=== PATIENT | female | born 1950 | race Caucasian/White ===

== ENCOUNTER 2021-11-17 11:07 | Outpatient (CLI) | payer MEDICARE | END 2021-11-17 11:08 | disposition home or self-care (01) | LOC: BICMAMMO 11:07 | PROVIDERS: ATTEND Internal Medicine | DX: Z12.31 Encounter for screening mammogram for malignant neoplasm of breast (principal); Z80.3 Family history of malignant neoplasm of breast | CPT/HCPCS: 77063; 77067 ==

== ENCOUNTER 2022-06-20 13:34 | Outpatient (CLI) | payer MEDICARE | END 2022-06-20 13:35 | disposition home or self-care (01) | LOC: TBSIIMAG 13:34 | PROVIDERS: ATTEND Nurse Practitioner Family | DX: M47.22 Other spondylosis with radiculopathy, cervical region (principal); M48.02 Spinal stenosis, cervical region; M50.10 Cervical disc disorder with radiculopathy, unspecified cervical region; M53.82 Other specified dorsopathies, cervical region | CPT/HCPCS: 72141 ==

== ENCOUNTER 2022-09-07 11:45 | Inpatient (IN) | payer MEDICARE ==
[2022-09-07 13:12] LABS: Hemoglobin 12.1 g/dL (12.0-15.5); Mean Corpuscular HGB CONC 33.9 g/dL (32.0-36.0); Mean Corpuscular Hemoglobin 30.4 pg (27.0-33.0); Mean Corpuscular Volume 89.7 fl (81.6-98.3); Mean Platelet Volume 9.7 fl (7.4-10.4); Platelet Count 281 10x3/uL (150-450); RBC Distribution Width 13.2 % (11.5-14.5); Red Blood Cell (RBC) Count 3.98 10x6/uL (3.90-5.03); White Blood Cell (WBC) Count 6.8 10x3/uL (3.5-10.5)
[2022-09-07 13:26] LABS: Anion Gap 12 mmol/L (10-20); BUN (Urea Nitrogen) 17 mg/dL (9.8-20.1); Calc. Creatinine Clearance 0 mL/min (70-130); Carbon Dioxide 26 mmol/L (23-31); Chloride 101 mmol/L (98-107); Estimated GFR 60; Glucose 89 mg/dL (83-110); Potassium 3.9 mmol/L (3.5-5.1); Sodium 135 mmol/L (136-145)
[2022-09-07 13:31] LABS: Prothrombin Time 10.5 sec (9.5-12.1)
[2022-09-12] MEDS ORDERED: fentaNYL PF 100 MCG/2 ML SYRINGE ONE (06:12)
[2022-09-12] MEDS ORDERED: HYDROmorphone 2 MG/ML VIAL ONE ×2 (06:12→12:58)
[2022-09-12] MEDS ORDERED: SUGAMMADEX SODIUM 200 MG/2 ML VIAL ONE (06:12)
[2022-09-12] MEDS ORDERED: Neomycin-Polymyxin 1 ML AMP ONE (06:17)
[2022-09-12] MEDS ORDERED: Thrombin 5000 UNITS/5 ML VIAL ONE (06:17)
[2022-09-12] MEDS ORDERED: Bacitracin Zinc Ointment 30 gm TUBE ONE (06:17)
[2022-09-12] MEDS ORDERED: Bupivacaine/Epinephrine 0.25% 30 ML VIAL ONE (06:17)
[2022-09-12] MEDS ORDERED: Lidocaine 1% MPF 2 ML VIAL ONE (06:38)
[2022-09-12] MEDS ORDERED: Sodium Chloride 0.9% 100 ML ONE (06:38)
[2022-09-12] MEDS ORDERED: CEFAZOLIN 2 GM VIAL ONE (06:38)
[2022-09-12] MEDS ORDERED: Vancomycin 1 GM VIAL ONE (06:39)
[2022-09-12 07:37] LABS: SARS-CoV-2 NAA Rapid Test Not Detected (NotDetected)
[2022-09-12] MEDS ORDERED: ePHEDrine 50 MG/ML VIAL ONE (07:50)
[2022-09-12] MEDS ORDERED: PROPOFOL 200 MG/20 ML VIAL ONE (07:50)
[2022-09-12] MEDS ORDERED: Dexamethasone 20 MG/5 ML VIAL ONE (07:50)
[2022-09-12] MEDS ORDERED: Ondansetron PF 4 MG/2 ML Vial ONE (07:50)
[2022-09-12] MEDS ORDERED: Ketorolac Tromethamine 30 MG/ML VIAL ONE (07:50)
[2022-09-12] MEDS ORDERED: Rocuronium Bromide 10 MG/ML (10ML VIAL) ONE (07:50)
[2022-09-12] MEDS ORDERED: Phenylephrine 10 MG/ML VIAL ONE (07:50)
[2022-09-12] MEDS ORDERED: Acetaminophen 325 MG TAB PO PRN (12:19)
[2022-09-12] MEDS ORDERED: Ondansetron PF 4 MG/2 ML Vial IVP PRN ×3 (12:19→14:00)
[2022-09-12] MEDS ORDERED: diphenhydrAMINE 25 MG CAP PO PRN ×2 (12:19→14:00)
[2022-09-12] MEDS ORDERED: Promethazine HCl 25 MG/ML VIAL IM PRN ×3 (12:22→14:00)
[2022-09-12] MEDS ORDERED: Promethazine HCl 25 MG/ML VIAL IVPB PRN (12:22)
[2022-09-12] MEDS ORDERED: HYDROmorphone 2 MG/ML VIAL SLOW IVP PRN (12:22)
[2022-09-12] MEDS ORDERED: Ondansetron HCl/PF 4 MG/2 ML Vial IVP PRN (12:22)
[2022-09-12] MEDS ORDERED: Meperidine HCl/PF 25 MG/ML VIAL SLOW IVP PRN (12:22)
[2022-09-12] MEDS ORDERED: hydrALAZINE 20 MG/ML VIAL SLOW IVP PRN (12:23)
[2022-09-12] MEDS ORDERED: Cepastat Lozenges 1 LOZ PO PRN (12:24)
[2022-09-12] MEDS ORDERED: FENTANYL 50 MCG/ML 1 ML VIAL ONE ×2 (12:29→12:40)
[2022-09-12] MEDS ORDERED: Zolpidem Tartrate 5 MG TAB PO PRN ×2 (13:55→14:00)
[2022-09-12] MEDS ORDERED: Naloxone HCl 0.4 mg/ml Vial IV PRN ×2 (13:55→14:00)
[2022-09-12] MEDS ORDERED: diphenhydrAMINE 50 MG/ML VIAL IM PRN ×2 (13:55→14:00)
[2022-09-12] MEDS ORDERED: diphenhydrAMINE 50 MG/ML VIAL IVP PRN ×2 (13:55→14:00)
[2022-09-12] MEDS ORDERED: Communication Order-Pharmacy FS SCH ×2 (14:00)
[2022-09-12] MEDS ORDERED: HYDROmorphone 10 mg/100 ml CADD IVPB PRN (14:00)
[2022-09-12] MEDS ORDERED: CEFAZOLIN 2 GM in Sodium Chloride 0.9% 100 ML IVPB SCH (15:00)
[2022-09-12] MEDS: Sodium Chloride 0.9% 1,000 ML IV SCH (19:20)
[2022-09-12 20:31] VITALS: BMI 41.5
[2022-09-12] MEDS: Atorvastatin Calcium 40 MG TAB PO SCH (20:48)
[2022-09-12] MEDS: Gabapentin 300 MG CAP PO SCH (20:48)
[2022-09-12] MEDS: Sertraline 100 MG TAB PO SCH (20:49)
[2022-09-13 05:17] LABS: #Lymphocytes 1.7 thou/uL (1.20-3.40); #Monocytes 0.7 thou/uL (0.11-0.59); #Neutrophils 4.8 thou/uL (1.40-6.50); %Basophils 0.2 % (0.0-1.0); %Eosinophils 0.2 % (0.0-10.0); %Lymphocytes 22.9 % (21.0-51.0); %Monocytes 10.2 % (0.0-10.0); %Neutrophils 66.5 % (42.0-75.0); Mean Corpuscular Hemoglobin 31.3 pg (27.0-31.0); Mean Corpuscular Volume 94.9 fl (78.0-98.0); Mean Platelet Volume 6.9 fL (7.4-10.4); Platelet Count 209 10x3/uL (130-400); RBC Distribution Width 12.2 % (11.5-14.5); Red Blood Cell (RBC) Count 3.51 mill/uL (4.20-5.40); White Blood Cell (WBC) Count 7.3 10x3/uL (4.8-10.8)
[2022-09-13 05:37] LABS: Anion Gap 12 mmol/L (10-20); BUN (Urea Nitrogen) 17 mg/dL (9.8-20.1); Calc. Creatinine Clearance 95 mL/min (70-130); Calcium 8.2 mg/dL (7.8-10.44); Carbon Dioxide 27 mmol/L (23-31); Chloride 100 mmol/L (98-107); Estimated GFR 73; Glucose 105 mg/dL (83-110); Potassium 4.4 mmol/L (3.5-5.1); Sodium 135 mmol/L (136-145)
[2022-09-13] MEDS: CEFAZOLIN 2 GM in Sodium Chloride 0.9% 100 ML IVPB SCH ×3 (06:13→20:50)
[2022-09-13] MEDS: Bisoprolol Fumarate 5 MG TAB PO SCH (08:13)
[2022-09-13] MEDS: Sodium Chloride 0.9% 1,000 ML IV SCH ×3 (08:13→15:23)
[2022-09-13] MEDS: Hydrochlorothiazide 25 MG TAB PO SCH (08:14)
[2022-09-13] MEDS ORDERED: tiZANidine HCl 4 MG TAB PO SCH (10:15)
[2022-09-13] MEDS: diphenhydrAMINE 25 MG CAP PO PRN ×2 (10:55→14:34)
[2022-09-13] MEDS ORDERED: HYDROcodone/Acetaminophen 10/325 mg Tablet PO PRN (11:25)
[2022-09-13] MEDS: HYDROcodone/Acetaminophen 10/325 mg Tablet PO PRN ×2 (14:34→20:40)
[2022-09-13] MEDS ORDERED: Promethazine HCl 12.5 MG in Sodium Chloride 0.9% 50 ML IVPB PRN (19:59)
[2022-09-13] MEDS: Sertraline 100 MG TAB PO SCH (20:30)
[2022-09-13] MEDS: Gabapentin 300 MG CAP PO SCH (20:30)
[2022-09-13] MEDS: Atorvastatin Calcium 40 MG TAB PO SCH (20:30)
[2022-09-13] MEDS: tiZANidine HCl 4 MG TAB PO PRN (23:08)
[2022-09-14] MEDS: HYDROcodone/Acetaminophen 10/325 mg Tablet PO PRN ×3 (02:58→17:08)
[2022-09-14] MEDS: CEFAZOLIN 2 GM in Sodium Chloride 0.9% 100 ML IVPB SCH ×3 (05:45→20:15)
[2022-09-14] MEDS: Hydrochlorothiazide 25 MG TAB PO SCH (07:50)
[2022-09-14] MEDS: tiZANidine HCl 4 MG TAB PO PRN (07:50)
[2022-09-14] MEDS: Bisoprolol Fumarate 5 MG TAB PO SCH (07:50)
[2022-09-14] MEDS: Sodium Chloride 0.9% 1,000 ML IV SCH ×2 (07:51→17:07)
[2022-09-14] MEDS ORDERED: Morphine 4 MG/ML VIAL SLOW IVP PRN (09:35)
[2022-09-14] MEDS: Chloraseptic Spray 180 ml Bottle PO PRN ×2 (11:59→20:21)
[2022-09-14] MEDS: Diazepam 5 MG TAB PO PRN ×2 (13:17→21:15)
[2022-09-14] MEDS: Sertraline 100 MG TAB PO SCH (20:15)
[2022-09-14] MEDS: Atorvastatin Calcium 40 MG TAB PO SCH (20:17)
[2022-09-14] MEDS: Gabapentin 300 MG CAP PO SCH (20:17)
[2022-09-15] MEDS: CEFAZOLIN 2 GM in Sodium Chloride 0.9% 100 ML IVPB SCH (05:32)
[2022-09-15] MEDS: HYDROcodone/Acetaminophen 10/325 mg Tablet PO PRN ×2 (05:46→14:37)
[2022-09-15] MEDS: Sodium Chloride 0.9% 1,000 ML IV SCH ×2 (07:31→23:27)
[2022-09-15] MEDS: Ketorolac Tromethamine 30 MG/ML VIAL IVP SCH (08:10)
[2022-09-15] MEDS: Hydrochlorothiazide 25 MG TAB PO SCH (08:11)
[2022-09-15] MEDS: Bisoprolol Fumarate 5 MG TAB PO SCH (08:11)
[2022-09-15] MEDS: Dexamethasone 4 MG TAB PO SCH ×2 (11:39→17:29)
[2022-09-15] MEDS: Sertraline 100 MG TAB PO SCH (21:33)
[2022-09-15] MEDS: Atorvastatin Calcium 40 MG TAB PO SCH (21:35)
[2022-09-15] MEDS: Gabapentin 300 MG CAP PO SCH (21:35)
[2022-09-15] MEDS: Diazepam 5 MG TAB PO PRN (21:37)
[2022-09-16] MEDS: Dexamethasone 4 MG TAB PO SCH ×5 (00:24→23:55)
[2022-09-16] MEDS: Ketorolac Tromethamine 30 MG/ML VIAL IVP SCH (07:48)
[2022-09-16] MEDS: Diazepam 5 MG TAB PO PRN (07:54)
[2022-09-16] MEDS: Hydrochlorothiazide 25 MG TAB PO SCH (07:54)
[2022-09-16] MEDS: Bisoprolol Fumarate 5 MG TAB PO SCH (07:54)
[2022-09-16] MEDS: Sodium Chloride 0.9% 1,000 ML IV SCH ×2 (07:58→23:32)
[2022-09-16] MEDS ORDERED: HYDROcodone/Acetaminophen 10/325 mg Tablet PO PRN (12:21)
[2022-09-16] MEDS: HYDROcodone/Acetaminophen 10/325 mg Tablet PO PRN (12:28)
[2022-09-16] MEDS: Gabapentin 300 MG CAP PO SCH (20:52)
[2022-09-16] MEDS: Atorvastatin Calcium 40 MG TAB PO SCH (20:53)
[2022-09-16] MEDS: Sertraline 100 MG TAB PO SCH (20:53)
[2022-09-17] MEDS: Dexamethasone 4 MG TAB PO SCH (06:25)
[2022-09-17] MEDS: Hydrochlorothiazide 25 MG TAB PO SCH (08:24)
[2022-09-17] MEDS: Bisoprolol Fumarate 5 MG TAB PO SCH (08:24)
[2022-09-17] MEDS: Diazepam 5 MG TAB PO PRN (10:16)
[2022-09-17] MEDS ORDERED: Dexamethasone 1 MG TAB PO SCH (12:00)
[2022-09-17 12:40] VITALS: BP 169/88; TEMP 98.5
[2022-09-17] MEDS: Sodium Chloride 0.9% 1,000 ML IV SCH (12:40)
[2022-09-19] MEDS ORDERED: Dexamethasone 1 MG TAB PO SCH (12:00)
[2022-09-21] MEDS ORDERED: Dexamethasone 1 MG TAB PO SCH (12:00)
== END 2022-09-17 13:19 | disposition home or self-care (01) | DRG 454 ==
LOC: SURG A 09-12 05:51 → MSONC 09-12 17:48
PROVIDERS: ADMIT Surgery; ATTEND Surgery
PROC: 0RG20A0 Fusion of 2 or more Cervical Vertebral Joints with Interbody Fusion Device, Anterior Approach, Anterior Column, Open Approach (ICD-10-PCS; principal; 2022-09-12)
PROC: 0RG2071 Fusion of 2 or more Cervical Vertebral Joints with Autologous Tissue Substitute, Posterior Approach, Posterior Column, Open Approach (ICD-10-PCS; 2022-09-12)
PROC: 0RB30ZZ Excision of Cervical Vertebral Disc, Open Approach (ICD-10-PCS; 2022-09-12)
PROC: 01N10ZZ Release Cervical Nerve, Open Approach (ICD-10-PCS; 2022-09-12)
DX: M48.02 Spinal stenosis, cervical region (principal); M47.12 Other spondylosis with myelopathy, cervical region; M50.00 Cervical disc disorder with myelopathy, unspecified cervical region; Z20.822 Contact with and (suspected) exposure to COVID-19; Z88.2 Allergy status to sulfonamides; Z88.6 Allergy status to analgesic agent; Z88.8 Allergy status to other drugs, medicaments and biological substances; Z88.1 Allergy status to other antibiotic agents; Z91.040 Latex allergy status; Z91.048 Other nonmedicinal substance allergy status; M54.12 Radiculopathy, cervical region
CPT/HCPCS: 36415; 80048; 85025; 85027; 85610; 85730; 86850; 86900; 86901; 93970; C1713; C1768; C1776; J1100; J1170; J1885; J2270; J2370; J2405; J2550; J2704; J3010; J3370; J3490; J7050; J8540; U0002

== ENCOUNTER 2022-09-07 11:46 | Outpatient (CLI) | payer MEDICARE ==
[2022-09-07 13:12] LABS: Hemoglobin 12.1 g/dL (12.0-15.5); Mean Corpuscular HGB CONC 33.9 g/dL (32.0-36.0); Mean Corpuscular Hemoglobin 30.4 pg (27.0-33.0); Mean Corpuscular Volume 89.7 fl (81.6-98.3); Mean Platelet Volume 9.7 fl (7.4-10.4); Platelet Count 281 10x3/uL (150-450); RBC Distribution Width 13.2 % (11.5-14.5); Red Blood Cell (RBC) Count 3.98 10x6/uL (3.90-5.03); White Blood Cell (WBC) Count 6.8 10x3/uL (3.5-10.5)
[2022-09-07 13:26] LABS: Anion Gap 12 mmol/L (10-20); BUN (Urea Nitrogen) 17 mg/dL (9.8-20.1); Calc. Creatinine Clearance 0 mL/min (70-130); Carbon Dioxide 26 mmol/L (23-31); Chloride 101 mmol/L (98-107); Estimated GFR 60; Glucose 89 mg/dL (83-110); Potassium 3.9 mmol/L (3.5-5.1); Sodium 135 mmol/L (136-145)
[2022-09-07 13:31] LABS: Prothrombin Time 10.5 sec (9.5-12.1)
== END 2022-09-07 11:47 | disposition home or self-care (01) ==
LOC: LABBT 11:46
PROVIDERS: ATTEND Surgery
DX: Z01.818 Encounter for other preprocedural examination (principal); M47.12 Other spondylosis with myelopathy, cervical region; M48.02 Spinal stenosis, cervical region; M50.20 Other cervical disc displacement, unspecified cervical region
CPT/HCPCS: 80048; 85027; 85610; 85730; 86850; 86900; 86901

== ENCOUNTER 2023-04-23 11:34 | Outpatient (CLI) | payer MEDICARE | END 2023-04-23 11:35 | disposition home or self-care (01) | LOC: RAD 11:34 | PROVIDERS: ATTEND Nurse Practitioner Family | DX: M48.02 Spinal stenosis, cervical region (principal); M47.812 Spondylosis without myelopathy or radiculopathy, cervical region; Z98.1 Arthrodesis status; Z98.890 Other specified postprocedural states | CPT/HCPCS: 72052 ==

== ENCOUNTER 2023-08-15 14:13 | Outpatient (CLI) | payer MEDICARE | END 2023-08-15 14:14 | disposition home or self-care (01) | LOC: SCSMRI 14:13 | PROVIDERS: ATTEND Surgery | DX: M50.11 Cervical disc disorder with radiculopathy, high cervical region (principal); M47.22 Other spondylosis with radiculopathy, cervical region; M48.02 Spinal stenosis, cervical region; M43.13 Spondylolisthesis, cervicothoracic region; Z98.1 Arthrodesis status; Z98.890 Other specified postprocedural states | CPT/HCPCS: 72050; 72141 ==

== ENCOUNTER 2023-11-09 07:49 | Outpatient (CLI) | payer MEDICARE ==
[2023-11-09 08:56] LABS: Hematocrit 34.2 % (34.9-44.5); Hemoglobin 11.7 g/dL (12.0-15.5); Mean Corpuscular HGB CONC 34.2 g/dL (32.0-36.0); Mean Corpuscular Hemoglobin 30.2 pg (27.0-33.0); Mean Corpuscular Volume 88.1 fl (81.6-98.3); Mean Platelet Volume 9.3 fl (7.4-10.4); Platelet Count 325 10x3/uL (150-450); RBC Distribution Width 13.7 % (11.5-14.5); Red Blood Cell (RBC) Count 3.88 10x6/uL (3.90-5.03); White Blood Cell (WBC) Count 6.6 10x3/uL (3.5-10.5)
[2023-11-09 09:09] LABS: PTT 25.4 sec (22.0-33.0); Prothrombin Time 10.8 sec (9.5-12.1)
[2023-11-09 09:12] LABS: Anion Gap 15 mmol/L (10-20); BUN (Urea Nitrogen) 16 mg/dL (9.8-20.1); Calc. Creatinine Clearance 0 mL/min (70-130); Calcium 9.3 mg/dL (7.8-10.44); Carbon Dioxide 26 mmol/L (23-31); Chloride 98 mmol/L (98-107); Estimated GFR 52; Glucose 95 mg/dL (83-110); Potassium 4.1 mmol/L (3.5-5.1); Sodium 135 mmol/L (136-145)
== END 2023-11-09 07:50 | disposition home or self-care (01) ==
LOC: LABBT 07:49
PROVIDERS: ATTEND Surgery
DX: Z01.818 Encounter for other preprocedural examination (principal); M54.12 Radiculopathy, cervical region; M48.02 Spinal stenosis, cervical region
CPT/HCPCS: 80048; 85027; 85610; 85730; 93005; 93010